=== PATIENT | female | born 1980 | race Caucasian/White ===

== ENCOUNTER 2020-11-19 06:37 | Day surgery (SDC) | payer OTHER, SELFPAY ==
[~2020-11-19] VITALS: Ht 162.6 cm; Wt 58.1 kg
[~2020-11-19 06:37] MED LIST: CETI10CA PO; FLUT16SP16 NS; MAGN100T3 PO; MONT10TA27 PO; PROP10TA10 PO; PROR4 PO; ZONI100C42 PO
[2020-11-19] MEDS ORDERED: SIMETHICONE 40 MG/0.6 ML ML ONE (07:15)
[2020-11-19] MEDS: fentaNYL CITRATE/PF 100 MCG/2 ML AMP ONE ×2 (08:14→08:16)
[2020-11-19] MEDS: MIDAZOLAM HCL 5 MG/5 ML VIAL ONE ×4 (08:14→08:24)
[2020-11-19 12:56] VITALS: BP_SYST 105
== END 2020-11-19 09:30 | disposition home or self-care (01) ==
LOC: SDS 06:37 → SMU 06:37 → SDS 09:30
PROVIDERS: ATTEND Internal Medicine
DX: R10.11 Right upper quadrant pain (principal); K29.70 Gastritis, unspecified, without bleeding; D68.0 Von Willebrand disease; E78.5 Hyperlipidemia, unspecified; Z90.49 Acquired absence of other specified parts of digestive tract; Z90.710 Acquired absence of both cervix and uterus; Z79.899 Other long term (current) drug therapy; Z20.828 Contact with and (suspected) exposure to other viral communicable diseases
CPT/HCPCS: 36415; 43239; 87081; 88305; 88312; 88313; 99152; G0378; J2250; J3010; J7030; U0003